=== PATIENT | male | born 2000 | race Caucasian/White ===

== ENCOUNTER 2022-09-03 21:52 | Emergency (ER) | payer SELFPAY ==
[~2022-09-03] VITALS: Ht 172.7 cm; Wt 68.0 kg
--- NOTE | ~2022-09-03 | EKG ---
[facility] [address] [facility], [place] [address] Draft EKG completed, results pending confirmation PATIENT NAME: SILKE CARDENAS Electrocardiogram DATE OF : 89 PHYSICIAN: PRELIMINARY REPORT #: [id number] REPORT IS CONFIDENTIAL AND NOT TO BE RELEASED WITHOUT AUTHORIZATION
[2022-09-04] MEDS ORDERED: PREDNISONE20 MG PO (00:35)
[2022-09-04 00:44] VITALS: BP 123/60
== END 2022-09-04 00:44 | disposition home or self-care (01) ==
LOC: ED 21:52
DX: M94.0 Chondrocostal junction syndrome [Tietze] (principal)
CPT/HCPCS: 36415; 71045; 80053; 83735; 84484; 85025; 85379; 93005; 93010; 96374; 99285-25; J1885